=== PATIENT | male | born 1990 | race Caucasian/White ===

== ENCOUNTER 2017-10-15 17:39 | Emergency (ER) | payer OTHER ==
[2017-10-15] MEDS ORDERED: TETANUS & DIPHTHERIA TOX,ADULT 0.5 ML VIAL ONE (18:05)
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
--- NOTE | 2017-10-15 19:12 | RAD REPORT ---
EXAM DESCRIPTION: RAD - Tib Fib Right - 10/15/2017 6:38 pm CLINICAL HISTORY: Right leg pain status post injury. FINDINGS: No fracture is seen
== END 2017-10-15 19:12 | disposition home or self-care (01) ==
LOC: ER 17:39
DX: S80.11XA Contusion of right lower leg, initial encounter (principal); S80.812A Abrasion, left lower leg, initial encounter; W22.09XA Striking against other stationary object, initial encounter; Y93.89 Activity, other specified; Y92.89 Other specified places as the place of occurrence of the external cause; Z23 Encounter for immunization; Z88.0 Allergy status to penicillin
CPT/HCPCS: 90714; 99284